=== PATIENT | female | born 1995 | race Caucasian/White ===

== ENCOUNTER 2024-07-03 15:27 | Emergency (ER) | payer SELFPAY ==
[2024-07-03 15:38] VITALS: BP 136/75; PULSE 84; RESP 18; TEMP 36.7; O2SAT 100
--- NOTE | 2024-07-03 15:47 | ED.SKABFB ---
HPI - Skin/Abscess/Foreign Bdy General Chief complaint: Skin/Abscess/Foreign Body Stated complaint: tick bite Source: patient Mode of arrival: ambulatory Limitations: no limitations History of Present Illness HPI narrative: 29-year-old female presented for complaint of a tick bite to the right shoulder blade. She first noticed the tick yesterday and says it was easy to remove using petroleum jelly and tweezers, it was removed intact. She states it was small and not engorged. Now has a red bump to the site. She is unsure how long the tick was in place. She denies or being in the [place] but she works outside with [employer]. She denies any associated n/v/d/f/c. Pt also reports cough for several weeks, was seen 6 days ago at given cough med and inhaler without much improvement. Denies sob, wheezing. Related Data Allergies Allergy/AdvReac Type Severity Reaction Status Date / Time No Known Allergies Allergy Verified 07/03/24 15:42 Review of Systems Review of Systems: CONSTITUTIONAL: Denies body aches, fever, chills, or sweats. EYES: Denies visual changes, redness, or discharge. ENT: Denies rhinorrhea, congestion CARDIOVASCULAR: Denies chest pain, palpitations, or edema. RESPIRATORY: Denies cough or dyspnea. GASTROINTESTINAL: Denies abdominal pain, nausea, vomiting, or diarrhea. SKIN: reports red area to shoulder blade MUSCULOSKELETAL: Denies back pain, joint pain, or myalgia. NEUROLOGIC: Denies headache, numbness, tingling, or weakness. PMFSH Comments At time of signature, I have reviewed and agree with nursing past medical, surgical, social and family history unless otherwise noted. Please see nursing chart for further information. There is no relevant family history pertinent to the presenting complaint Exam Narrative: GENERAL: Well-appearing EYES: conjunctivae clear, and EOMI. ENT: Mucous membranes moist. Oropharynx without edema, erythema or lesions. NECK: Supple. No lymphadenopathy CHEST: Clear to auscultation. HEART: Regular rate and rhythm. SKIN: Warm, dry. Right lateral scapula with approx 0.5cm diameter slightly raised erythematous lesion, mildly ttp, no drainage or fluctuance. NEURO: Alert and oriented x3. Course Course Emergency Course: Patient is aware of diagnosis, understands and agrees to treatment plan. Anticipatory guidance given. Patient agrees to follow-up as directed and is aware of reasons to seek care at the emergency department. Portions of this record may have been created with voice recognition software Level of Care: Express Care Visit Vital Signs Vital signs: Vital Signs Temperature 98.1 F 07/03/24 15:38 Pulse Rate 84 07/03/24 15:38 Respiratory Rate 18 07/03/24 15:38 Blood Pressure 136/75 07/03/24 15:38 Pulse Oximetry 100 07/03/24 15:38 Oxygen Delivery Room Air 07/03/24 15:38 Temperature 98.1 F 07/03/24 15:38 Pulse Rate 84 07/03/24 15:38 Respiratory Rate 18 07/03/24 15:38 Blood Pressure 136/75 07/03/24 15:38 Pulse Oximetry 100 07/03/24 15:38 Oxygen Delivery Room Air 07/03/24 15:38 Reviewed MDM - Skin/Abscess/Foreign Bdy MDM Narrative Medical decision making narrative: Discussed physical exam findings; rx for doxy as prophyaxis, and steroid for cough. Advised supportive measures and signs/symptoms to go to the ER. Pt is appropriate for outpt treatment and f/u. Differential Diagnosis Differential diagnosis: Likely abscess of skin or subcutaneous tissue, urticaria, herpes zoster, cellulitis, insect bites and contact dermatitis Discharge Plan Discharge Clinical Impression: Insect bite, Bronchitis Patient Disposition: Home, Self-Care Condition: Stable Instructions: Antibiotic Form, Lyme Disease (ED), Tick Bite (ED) Additional Instructions: Insect: Take the medication as directed Monitor the site closely Keep the area clean and dry Go to the ER for any worsening symptoms or concerns including: If you se
== END 2024-07-03 16:07 | disposition home or self-care (01) ==
PROVIDERS: Emergency Provider Nurse Practitioner Family
DX: S40.261A Insect bite (nonvenomous) of right shoulder, initial encounter (principal); W57.XXXA Bitten or stung by nonvenomous insect and other nonvenomous arthropods, initial encounter; J40 Bronchitis, not specified as acute or chronic
CPT/HCPCS: 99203; G0463